=== PATIENT | female | born 1995 | race Asian ===

== ENCOUNTER 2018-11-03 15:59 | Emergency (ER) | payer BC ==
[~2018-11-03] VITALS: Ht 170.2 cm; Wt 86.2 kg
--- NOTE | 2018-11-03 16:04 | NUR ---
ED Nurse Note: pt not in the waiting room
[2018-11-03 16:14] VITALS: BP 122/77
--- NOTE | 2018-11-03 16:14 | NUR ---
ED Nurse Note: Pt AAO x4 present at ER with her mom after falling on the street about 15 minutes ago due to uneven surface. Pt is calm and verbalized pain level 5/10. VSS and cooperative with initial assessment.
--- NOTE | 2018-11-03 16:37 | Emergency Room Report ---
History of Present Illness General Chief Complaint: Lower Extremity Injury Source: Patient Present Illness HPI 23-year-old female presents to the emergency department complaining of 5 out of 10 in severity localized pain, tenderness swelling and bruising to the lateral aspect of the right foot 20 minutes. Patient reports she was walking on the street and she had a mechanical trip and fall where she twisted her ankle. Patient states that her pain is primarily on her foot though her ankle is fine. Patient states pain upon weight-bearing and attempts to walk. She denies previous injury to this extremity she denies hitting her head or loss of consciousness and she denies midline neck or back pain. Denies numbness tingling or loss of sensation or gross motor movements of the extremities, incontinence of bowel or bladder. Denies CP, Palpitations, LOC, AMS, dizziness, Changes in Vision, weakness or a sudden severe headache. Allergies: Uncoded Allergies: ANIMAL FUR (Allergy, Unknown, rash,, 11/03/18) Patient History Past Medical History: see triage record Past Surgical History: none Pertinent Family History: none Last Menstrual Period: sep 2018 Now: No Immunizations: UTD Reviewed Nursing Documentation: PMH: Agreed; PSxH: Agreed Nursing Documentation-PMH Past Medical History: No History, Except For Hx Asthma: Yes Review of Systems All Other Systems: negative except mentioned in HPI Physical Exam Vital Signs Date Time Temp Pulse Resp B/P (MAP) Pulse Ox O2 Delivery O2 Flow Rate FiO2 11/03/18 16:08 98.2 98 16 122/77 97 Room Air Sp02 EP Interpretation: reviewed, normal General Appearance: alert, GCS 15, non-toxic, mild distress Head: normocephalic, atraumatic Eyes: bilateral eye normal inspection, bilateral eye PERRL ENT: hearing grossly normal, normal voice Neck: full range of motion Respiratory: lungs clear, normal breath sounds, speaking full sentences Cardiovascular #1: regular rate, rhythm, normal capillary refill Cardiovascular #2: 2+ dorsalis pedis (R), 2+ dorsalis pedis (L) Musculoskeletal: back normal, gait/station normal - compensatory, normal range of motion, swelling - lateral right foot., other - bruising to the lateral right foot ., tender - lateral right foot. Neurologic: alert, oriented x3, responsive, motor strength/tone normal, sensory intact, speech normal, grossly normal Psychiatric: judgement/insight normal Skin: no rash, warm/dry, well hydrated, other - bruising to the lateral right foot. Medical Decision Making MARIETTA Attestation Dr. stoddard is my supervising Physician whom patient management has been discussed with. Diagnostic Impression: Primary Impression: Sprain of foot, right Qualified Codes: S93.601A - Unspecified sprain of right foot, initial encounter ER Course 23-year-old female presents to the emergency department complaining of 5 out of 10 in severity localized pain, tenderness swelling and bruising to the lateral aspect of the right foot 20 minutes. Patient reports she was walking on the street and she had a mechanical trip and fall where she twisted her ankle. Patient states that her pain is primarily on her foot though her ankle is fine. Patient states pain upon weight-bearing and attempts to walk. She denies previous injury to this extremity she denies hitting her head or loss of consciousness and she denies midline neck or back pain. Denies numbness tingling or loss of sensation or gross motor movements of the extremities, incontinence of bowel or bladder. Denies CP, Palpitations, LOC, AMS, dizziness, Changes in Vision, weakness or a sudden severe headache. Ddx considered but are not limited to Fracture, dislocation, contusion, Sprain/ Strain/Spasm. Vital signs: are WNL, pt. is afebrile H&PE are most consistent with musculoskeletal injury will perform imaging to r/ o fractures/dislocations. ORDERS: - X-ray Right foot 3 views. - negative for fx, Dislocation, or significant soft tissue injury, per preliminary read in ED, and signed by MARIETTA Ramirez , my supervising physician has reviewed, and agrees with my interpretation. ED INTERVENTIONS: - Motrin PO Shivam wrap applied to the right foot by screen making technician. Pt. remains neurovascularly intact. -Patient is provided with crutches and instructed on their use DISCHARGE: At this time pt. is stable for d/c to home. Will provide printed patient care instructions, and any necessary prescriptions. Care plan and follow up instructions have been discussed with the patient prior to discharge. Other X-Ray Diagnostic Results Other X-Ray Diagnostic Results : X-Ray ordered: Right Foot # of Views/Limited Vs Complete: 3 View Indication: Swelling EP Interpretation: Yes PA Xray: Interpretation reviewed, by supervising MD, and agrees with findings. Interpretation: no dislocation, no soft tissue swelling, no fractures Impression: No acute disease Electronically Signed by: Estella Ramirez PA-C Last Vital Signs Date Time Temp Pulse Resp B/P (MAP) Pulse Ox O2 Delivery O2 Flow Rate FiO2 11/03/18 16:08 98.2 98 16 122/77 97 Room Air Disposition: HOME, SELF-CARE Condition: Stable Scripts Ibuprofen* (MOTRIN*) 600 Mg Tablet 600 MG ORAL THREE TIMES A DAY, #30 TAB 0 Refills Prov: Estella Ramirez 11/03/18 Patient Instructions: Foot Sprain Additional Instructions: Take medications as directed. Follow up with an [employer] in 3-5 days, even if your symptoms have resolved. If symptoms persist MRI may be required at the discretion of your PCP or Ortho Specialist. --Please review list of primary care clinics, if you do not already have a primary care provider who can give you an Orthopedic Referral. Return sooner to ED if new symptoms occur, or current symptoms become worse. Do not drink alcohol, drive, or operate heavy machinery while taking [place] as this may cause drowsiness. - Please note that this Emergency Department Report was dictated using [employer] galvanizer technology software, occasionally this can lead to erroneous entry secondary to interpretation by the dictation equipment. Estella Ramirez Nov 03, 2018 16:37
--- NOTE | 2018-11-03 16:57 | Diagnostic Imaging Report ---
EXAM: XR Right Foot Complete, 3 or More Views CLINICAL HISTORY: PAIN TECHNIQUE: Frontal, lateral and oblique views of the right foot. COMPARISON: No relevant prior studies available. FINDINGS: Bones/joints: Unremarkable. No visible displaced fracture. No dislocation. No osseous erosions. Visualized joint spaces appear unremarkable. Soft tissues: Unremarkable. No radiopaque foreign body. IMPRESSION: Unremarkable right foot x-rays.
[2018-11-03] MEDS ORDERED: IBUPROFEN600 MG ORAL (17:22)
[2018-11-03 17:40] VITALS: BP 124/74
--- NOTE | 2018-11-03 17:40 | NUR ---
ED Nurse Note: Pt was cleared to be discharged by ROSEANNA. Pt was informed that X-ray was negative for fx and MIL wrap was applied on Rt ankle. Crutches were provided to pt's height 5'7". Pt was instructed on crutches use and demonstrated back to nurses. Pt is currently wearing heels and she will be wearing flat shoes until her ankle heals. VSS, received prescription and verbalized understanding. ID band removed. Pt was discharged using crutches with her mom.
== END 2018-11-03 17:40 | disposition home or self-care (01) ==
LOC: EMR 16:30
DX: S93.601A Unspecified sprain of right foot, initial encounter (principal); W01.0XXA Fall on same level from slipping, tripping and stumbling without subsequent striking against object, initial encounter; Y93.01 Activity, walking, marching and hiking; Y92.410 Unspecified street and highway as the place of occurrence of the external cause; J45.909 Unspecified asthma, uncomplicated
CPT/HCPCS: 99283